=== PATIENT | male | born 1965 | race Caucasian/White ===

== ENCOUNTER 2020-11-24 13:15 | Emergency (ER) | payer MEDICARE, OTHER ==
[2020-11-24 13:37] LABS: Glucose,Whole Blood 127 mg/dL (75-99)
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
== END 2020-11-24 15:54 | disposition expired ==
LOC: EC 13:15
DX: I46.9 Cardiac arrest, cause unspecified (principal); S00.83XA Contusion of other part of head, initial encounter; V29.9XXA Motorcycle rider (driver) (passenger) injured in unspecified traffic accident, initial encounter; Y92.410 Unspecified street and highway as the place of occurrence of the external cause; Y93.55 Activity, bike riding
CPT/HCPCS: 31500; 36415; 99291